=== PATIENT | female | born 1945 | race Caucasian/White ===

== ENCOUNTER 2020-08-20 08:22 | Outpatient (REF) | payer MEDICARE, SELFPAY ==
--- NOTE | 2020-08-20 | PFT_ITS ---
FLOWS: FEV1 97% of predicted at 2.10 L. FVC 95% of predicted at 2.73 L. FEV1 to FVC ratio of 0.77. No bronchodilator response. LUNG VOLUMES: Total lung capacity 87% of predicted at 4.42 L. Residual volume 83% of predicted at 1.89 L. Slow vital capacity 90% of predicted at 2.53 L. Expiratory reserve volume 25% of predicted at 0.16 L. Diffusion capacity is moderately decreased, diffusion capacity adjust to being mildly decreased after correction for alveolar ventilation. IMPRESSION: No obstructive or restrictive ventilatory defect. No bronchodilator response. Isolated defect in diffusion capacity suggests underlying pulmonary, vascular, or parenchymal disease. Clinical correlation is advised. Johnson Starks MD AP/MODL / [id number]
== END 2020-08-20 08:23 | disposition home or self-care (01) ==
LOC: HO.RESP 08:22
PROVIDERS: PCP Pediatrics; Visit Provider Hospitalist
DX: J84.9 Interstitial pulmonary disease, unspecified (principal)
CPT/HCPCS: 94060; 94727; 94729; 99212

== ENCOUNTER → 2020-10-04 12:37 | Outpatient (REF) | payer MEDICARE, SELFPAY | LOC: HO.SL 12:37 | PROVIDERS: PCP Pediatrics; Visit Provider Hospitalist | DX: G47.33 Obstructive sleep apnea (adult) (pediatric) (principal) | CPT/HCPCS: 95806 ==

== ENCOUNTER → 2020-11-22 09:49 | Outpatient (BNVA) | payer MEDICARE, SELFPAY | PROVIDERS: PCP Pediatrics; Visit Provider Hospitalist | DX: J67.9 Hypersensitivity pneumonitis due to unspecified organic dust (principal); G47.33 Obstructive sleep apnea (adult) (pediatric); I65.09 Occlusion and stenosis of unspecified vertebral artery; R91.8 Other nonspecific abnormal finding of lung field; J84.9 Interstitial pulmonary disease, unspecified; J45.40 Moderate persistent asthma, uncomplicated | CPT/HCPCS: 99212 ==

== ENCOUNTER → 2021-02-26 09:54 | Outpatient (BNVA) | payer MEDICARE, SELFPAY | PROVIDERS: PCP Pediatrics; Visit Provider Hospitalist | DX: G47.33 Obstructive sleep apnea (adult) (pediatric) (principal); R91.8 Other nonspecific abnormal finding of lung field; J84.9 Interstitial pulmonary disease, unspecified; J45.40 Moderate persistent asthma, uncomplicated; J67.9 Hypersensitivity pneumonitis due to unspecified organic dust; J40 Bronchitis, not specified as acute or chronic; J06.9 Acute upper respiratory infection, unspecified | CPT/HCPCS: 99212 ==

== ENCOUNTER → 2021-08-26 09:35 | Outpatient (BNVA) | payer MEDICARE, SELFPAY | PROVIDERS: PCP Pediatrics; Visit Provider Hospitalist | DX: G47.33 Obstructive sleep apnea (adult) (pediatric) (principal); R91.8 Other nonspecific abnormal finding of lung field; J84.9 Interstitial pulmonary disease, unspecified; J45.20 Mild intermittent asthma, uncomplicated; J67.9 Hypersensitivity pneumonitis due to unspecified organic dust | CPT/HCPCS: 99212 ==

== ENCOUNTER 2022-07-30 09:40 | Outpatient (REF) | payer MEDICARE, SELFPAY ==
--- NOTE | 2022-07-30 15:09 | PFT_ITS ---
Forced vital capacity 89%, FEV1 is 90%, FEV1/FVC ratio 76. [id number] 90% and MVV is 117%. Post bronchodilator therapy there is no significant change. Total lung capacity 84%. Residual volume 69%. Diffusion capacity 64%. CONCLUSION: Normal pulmonary function test, and there is no evidence of obstructive or restrictive pulmonary disorder. Diffusion capacity is slightly decreased, but when corrected with the volume, it is up to 74%, which is normal. Rhiannon Hartely MD MSB/MODL / [id number]
== END 2022-07-30 09:41 | disposition home or self-care (01) ==
LOC: HO.RESP 09:40
PROVIDERS: PCP Internal Medicine; Visit Provider Hospitalist
DX: J67.9 Hypersensitivity pneumonitis due to unspecified organic dust (principal)
CPT/HCPCS: 94060; 94727; 94729

== ENCOUNTER → 2022-09-01 09:34 | Outpatient (BNVA) | payer MEDICARE, SELFPAY | PROVIDERS: PCP Pediatrics; Visit Provider Hospitalist | DX: J67.9 Hypersensitivity pneumonitis due to unspecified organic dust (principal); J45.20 Mild intermittent asthma, uncomplicated; J84.9 Interstitial pulmonary disease, unspecified; R91.8 Other nonspecific abnormal finding of lung field; G47.33 Obstructive sleep apnea (adult) (pediatric) | CPT/HCPCS: 99212 ==

== ENCOUNTER 2025-03-16 09:34 | Outpatient (AMB) | payer MEDICARE, SELFPAY ==
[2025-03-16 09:39] VITALS: BP 124/60; PULSE 78; O2SAT 98; BMI 28.2
--- NOTE | 2025-03-16 09:39 | A.OFFVIS_ITS ---
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 This is biopsy proven. She had a hypersensitivity panel positive for mold and also for bird droppings. She now has been off the prednisone for about for 5 weeks. She has been doing well. She has noticed a cough. The cough is dry and intermittent. Denies any shortness of breath or wheezing at this time. She does not feel that she needs anything for the cough. She denies any chest pains or any other respiratory complaints. She knows to avoid mold and also avoid any place having be hot and humid with poor ventilation. She is aware that she needs to use a mask if working in the garden or any other areas were mold is present. She was sick prior to getting the CT scan with a respiratory illness. She was at the end of the illness when she get the CT scan. Now she is back to baseline. She is not wheezing at coughing barely. We did review the CT scan in the office demonstrating some increasing reticular changes primarily at the bases. She also has a small new pulmonary nodule measuring 2 mm. 06/2019 The patient is well from a respiratory status. Denies any worsening cough denies any chest pains or shortness of breath. She definitely feels like her respiratory status is at baseline. She also change her eating habits where she is avoiding simple carbs in this is really improving her overall energy and respiratory symptoms. She has also been treating her reflux disease better with the reflux diet and making sure she does all the necessary lifestyle changes to minimize micro aspirations. I believe this is all helping. Her exam is normal no wheezing or rhonchi appreciated. No crackles appreciated. We will hold off on doing any further imaging studies or starting any prednisone at this time. If however the patient develops any worsening respiratory symptoms or any other concerning symptoms she is to call as soon as possible. Will plan to repeat the CT scan 6 months or sooner if she develops any worsening symptoms. 12/14/2019. The patient is here for pulmonary follow-up visit. Overall she is doing well. She continues to lose weight healthy. She feels better she is more active. She denies any shortness of breath or cough. She has been having some reflux symptoms and she is working on her lifestyle changes. In the lan ntime she did have a CT scan of the chest done November 2019 demonstrating some persistent chronic airspace disease and interstitial lung disease. These findings were not there in 2018. This brings up the question of underlying chronic hypersensitivity pneumonitis. The patient is not taking any inhalers at this point. I will feel better if she was taking at least inhaled corticosteroid to minimize the inflammatory changes. Explained to her this inflammatory changes have been slowly and she may not realize it. Will monitor closely her PFTs and also her CT scan to make sure she does develop any progressive interstitial lung disease. The meantime she is trying to avoid mold at all times. 08/20/2020 the patient is here for pulmonary follow-up visit. Overall she is doing well. She denies any worsening dyspnea or cough. She continues to follow closely the reflux diet. She is also voiding mold to minimize her exposures. She did undergo a pulmonary function study today. No evidence of any obstruction nor restriction. She does have slight decrease in the diffusing capacity. At this point we continue with current medical regimen. Her last CT scan of the chest was back in November 2019 demonstrating interstitial lung disease as well as pulmonary nodules. At this point the patient needs a repeat CT scan to address the pulmonary nodules and to assess if there is any worsening of the interstitial lung disease. 11/22/2020 the patient is here for a pulmonary follow-up visit. Overall the patient has been doing well from a respiratory status. She denies any significant shortness of breath or coughing. She denies any fevers or chills. She is still trying to avoid any exposures to mold. She does carry a diagnosis of hyper sensitivity pneumonitis. In the meantime the patient does have daytime drowsiness. Her [place] score continues to be elevated 03/06. We did review home sleep study demonstrating an AHI 15 consistent moderate COPD. The patient is very symptomatic and also has significant snoring documented. The patient understands that best treatment with the CPAP. She is agreeable at this time. Will make arrangements for the local [employer] company to be able to set her up. In the meantime her CT scan of the chest has been pretty stable demonstrating minimal mosaic pattern and haziness. But no new areas and no new nodules. Appears to be stable which is reassuring. It is likely that this is going to be her new normal. At some point will repeat the CT scan specially if she develops any symptoms. Hold right now will hold off at least 12-18 months. The patient be set up with CPAP and she will return in 3 months to reassess her progress. The patient also is very concerned about an MRI finding that she was not aware of. Apparently she has what appears to be vertebral artery stenosis. In view of the underlying obstructive sleep apnea and other cardiovascular risk factors patient should be evaluated for this. 02/26/2021 the patient is here for pulmonary follow-up visit. Overall the patient has been complaining of worsening URI like symptoms for the last couple days. Positive sick contacts after a family gathering. The patient has been complaining of nasal congestion cough in addition to her sore throat. She did get a rapid COVID test that was negative. She still waiting for the final report however. The patient has been using her respiratory inhalers. Her cough tends to be productive at times. She has not been using any hezl-[id number]-[id number] medications. Denies any fevers or chills. At this point will treat the patient for bronchitis. If the patient worsens since developed wheezing she should also start prednisone. If her COVID test comes back positive she is to call and we can consider monoclonal antibody therapy. Also to note the patient did start PAP therapy but she could not tolerated and she returned it. the patient is not interested in re-attempt thing PAP therapy at this time. 08/26/2021 the patient is here for a pulmonary follow-up visit. She does complaint of increasing dyspnea on exertion. She states that she has a hard time completing a game of golf. Along with the shortness of breath she does have some discomfort in her lower extremities and hips. Therefore is likely multifactorial. The patient has not been using any inhalers. She denies wanting to use her rescue inhaler. her respiratory exam is relatively normal. Will have her undergo a chest x-ray. If the patient develops any worsening symptoms she is to call the office so I can send her rescue inhaler. Otherwise a follow-up in 1 year with pulmonary function studies. 09/01/2022 the patient is here for a pulmonary follow-up visit. The patient has been staying active outside playing golf and walking. Denies any respiratory limitations. She does have a rescue inhaler but she has not had to use it. No longer taking any maintenance inhalers. She is having some issues with chest pressure sensation. Sometimes she is having to stop which she is doing because of some chest discomfort. She is following up with Cardiology and will have a cardiac stress test soon. In the meantime we did talk about sleep apnea and how that can affect her cardiovascular health. We did review her sleep studies from 2020 demonstrating moderate obstructive sleep apnea. Most of the apneic episodes and hypopnea episodes occur during her lying supine. Therefore we talked about the importance of positional therapy. She is going to look into some options. If the patient has any evidence of any underlying cardiovascular disease which should revisit the sleep study and make sure that she is doing adequate position therapy to minimize her risk of further worsening cardiovascular health. The patient working outside which show a but she is wearing a respirator to try to minimize mold exposure specially with history of pneumonitis. We did review her pulmonary function studies that she just had demonstrating no evidence of any obstructive nor restrictive ventilatory defects. She does have a mild diffusion impairment but not enough to warrant any clinical symptoms. Therefore which she will continue with current therapy and will follow-up in a year's time unless she develops any new issues she will call the office for an earlier assessment. 03/16/2025 the patient is here for pulmonary follow-up visit. Overall the patient is doing well. Apparently she did have a evaluation for shoulder discomfort and she had x-rays. It was noted that she had a nodular density in the left hemithorax. Therefore the patient was calling. We did have her go for a chest x-ray at [facility]. Personally by me. No evidence of any nodular densities. The nodular density had to do with her bony structures in the form that they took the x-ray. The patient is doing well denies any shortness of breath. Sometimes she has not intermittent cough. Typically nonproductive. She does not use any respiratory inhalers at this time. The patient continues to exercise and playing golf regularly. No limitations from a pulmonary standpoint. She denies any significant exposure to mold. That is the biggest emesis for her with a history of hypersensitivity pneumonitis. Does no longer the case. She is sleeping well. She is working on weight loss. Overall well we did talk about her vaccine. She will get her RSV vaccine at some point. The patient otherwise will follow-up in a year with a chest x-ray. If any issues arise she can always call for further recommendations. [facility] Medical History (Updated 08/26/21 @ 21:29 by Rell Warren MD) Vertebral artery stenosis Palpitations Pulmonary nodules ILD (interstitial lung disease) Asthma Hypersensitivity pneumonitis Family History (Updated 08/21/20 @ 21:40 by Rell Warren MD) Other Asthma Social History Patient Tobacco Use Status: Former Tobacco user Tobacco use type: Cigarette Years Smoked: 40 years Review of Systems Const Denies chills, Denies fatigue, Denies fever(s) and Denies night sweats ENT Denies change in voice, Denies lip swelling, Denies mouth pain, Reports nasal congestion, Reports nasal discharge and Denies tongue swelling Card Denies chest pain and Denies dyspnea on exertion Resp Denies chest congestion, Reports cough, Denies dyspnea on exertion and Denies wheezing GI Denies abdominal pain Musc Reports arthralgias and Reports limited range of motion Neuro Denies Neuro-related abnormal movements Psych Denies no additional complaints Endo Denies fatigue Andrea/Lymph Denies easy bleeding and Denies lymphadenopathy Aller/Immun Denies lip swelling, Denies tongue swelling and Denies wheezing Physical Exam Vital Signs: Last Vital Signs Pulse 78 03/16/25 09:39 BP 124/60 03/16/25 09:39 Pulse Ox 98 03/16/25 09:39 Oxygen Delivery Method Room Air 03/16/25 09:39 BMI result Body Mass Index 28.2 Const General: alert Neck Neck: Yes normal visual inspection, Yes full ROM and Yes no lymphadenopathy Chest Chest palpation & inspection: normal inspection of the chest Resp Effort & Inspection: normal respiratory effort Auscultation: no rales, no rhonchi, no wheezes and diminished lung sounds Cardio Rate: regular rate Rhythm: regular rhythm Heart sounds: S1 normal heart sound present and S2 normal heart sound present GI Palpation (GI): Soft to palpation and nontender Auscultation: normal bowel sounds Skin General skin exam: rashes and/or lesions noted Assessment & Plan Assessment & Plan (1) Pulmonary nodules: Comment: Stable for more than 2 years Code(s): R91.8 - Other nonspecific abnormal finding of lung field Category: Medical (2) ILD (interstitial lung disease): Comment: secondary to HSP due to mold, better Code(s): J84.9 - Interstitial pulmonary disease, unspecified Category: Medical (3) Asthma: Code(s): J45.909 - Unspecified asthma, uncomplicated Category: Medical Qualifiers: Asthma complication type: uncomplicated Asthma persistence: intermittent Asthma severity: mild Qualified Code(s): J45.20 - Mild intermittent asthma, uncomplicated (4) Hypersensitivity pneumonitis: Code(s): J67.9 - Hypersensitivity pneumonitis due to unspecified organic dust Category: Medical (5) IGNACIO (obstructive sleep apnea): Comment: Not on CPAP Code(s): G47.33 - Obstructive sleep apnea (adult) (pediatric) Category: Medical Plan: not treated Plan consider short-acting beta agonist as needed mold avoidance positional sleep therapy, needs to avoid sleeping supine CXR in 1 yr F/U in 1 yr Coding Level of Care Code Est Pt Level 4 (15443) Diagnoses Pulmonary nodules R91.8 ILD (interstitial lung disease) J84.9 Mild intermittent asthma without complication J45.20 Asthma complication type: uncomplicated Asthma persistence: intermittent Asthma severity: mild Hypersensitivity pneumonitis J67.9 IGNACIO (obstructive sleep apnea) G47.33 Time Spent (min) 16
--- OUTSIDE RECORDS SUMMARY | 2025-03-16 10:47 | XMS_ITS | Clinical Summary ---
Author Organization [facility] Address [address] [place] [id number] Phone Care Team Providers Care Casting Associate Name Role Phone Kanchan Jay MD Primary Care Provider [phone] Allergies Active Allergy Reactions Criticality Noted Date Comments Sulfamethoxazole-Trimethoprim 2016 Medications pediatric [id number] n (MULTI-VITAMINS WITH IRON) Chew Take by mouth. Active ascorbic acid, vitamin C, (VITAMIN C) 500 MG tablet Take 500 mg by mouth. Active metoprolol tartrate (LOPRESSOR) 25 MG tablet Take 25 mg by mouth. Active predniSONE (DELTASONE) 5 MG tablet Take 7.5 mg by mouth. 09/02/2017 Active cyanocobalamin, vitamin B-12, 100 MCG tablet Take 100 mcg by mouth daily. Active calcium carbonate 1,250 mg (500 mg elemental) capsule Take 1,250 mg by mouth 2 (two) times a day with meals. Active Active Problems Problem Noted Date Diagnosed Date Screening for breast cancer 07/05/2018 Assessment & Plan (07/05/2018 9:51 AM EDT): Screening guidelines reviewed. Over 70- no consensus. Pt in good health. Suggested screening this year and then prn as good health continues. Osteopenia after menopause 07/05/2018 Assessment & Plan (07/05/2018 9:50 AM EDT): Pt states she had vertebral fx on CT in 2018. Hasn't had BD in over 2-3 yrs? On chronic prednisone. Immunizations Immunization Administration Dates Next Due Influenza High-Dose Trivalent Preservative Free IM 12/25/2017 Family History Medical History Relation Comments Prostate cancer Brother Myelodysplastic syndrome Father ag e 69 Colon cancer Mother of the age 69 Liver cancer Mother Hypothyroidism Sister 1 Osteoporosis Sister 1 Hypothyroidism Sister 2 Hypothyroidism Sister 3 Relation Status Comments Brother Alive Father Mother Sister 1 Alive Sister 2 Alive Sister 3 Alive Social History Tobacco Use Types Packs/Day Years Used Date Smoking Tobacco: Former Smokeless Tobacco: Never Alcohol Use Standard Drinks/Week Comments Never 0 (1 standard drink = 0.6 oz pur e alcohol) Education Answer Date Recorded Are you interested in more education? Not on lilo e 08/08/2022 Are you concerned about learning? Not on file 08/08/2022 No 08/08/2022 No 08/08/2022 Digital Access Answer Date Recorded No 09/06/2022 No 09/06/2022 No 09/06/2022 Reliable internet access at home? Not on file 09/06/2022 Device with a working camera? Not on file Comments Unknown Sex and Gender Information Value Date Recorded Sex Assigned at Not on file Legal Sex Female 9:07 AM EST Gender Identity Not on file Sexual Orientation Not on file Occupation Industry Job Start Date Job End Date retired Not on file Not on file Not on file Last Filed Vital Signs Vital Sign Reading Time Taken Comments Blood Pressure 110/60 07/05/2018 9:19 AM EDT Pulse - - Temperature - - Respiratory Rate - - Oxygen Saturation - - Inhaled Oxygen Concentration - - Weight 71.4 kg (157 lb 6.4 oz) 07/05/2018 9:19 A M EDT Height 162.6 cm (5' 4 ) 07/05/2018 9:19 AM EDT Body Mass Index 27.02 07/05/2018 9:19 AM EDT Plan of Treatment Health Maintenance Due Date Last Done Comments Adult Td,Tdap Booster 1946 LIPID PANEL 1946 DEPRESSION SCREENING 1958 SMOKING Hx and SMOKELESS TOBACCO SCREENING 11/09/1959 HEPATITIS C SCREENING 1964 PNEUMOCOCCAL VACCINES (50+ years) (1 of 1 - PCV) 1996 ZOSTER VACCINES (1 of 2) 1996 OSTEOPOROSIS SCREENING INITIAL (ONE-TIME) 11/09/2011 RSV VACCINE (1 - 1-dose 75+ series) 2021 INFLUENZA VACCINE (#1) 2024 , 12/25/2017, 01/02/2017, Additional history exists COVID-19 VACCINE (2 - 2024- season) 2024 07/11/2020 HEPATITIS A VACCINES Aged Out No long er eligible based on patient's age to complete this topic HIB VACCINES Aged Out No longer eligi ble based on patient's age to complete this topic MENINGOCOCCAL VACCINES (ACWY) Aged Out No longer eligible based on patient's age to complete this topic MENINGOCOCCAL VACCINES (B) Aged Out N o longer eligible based on patient's age to complete this topic Medical Devices Not on file Insurance [employer] Member Subscriber Plan / Payer (Ef fective 2017-Present) Name:Noemi Steele Relation to Subscriber:Self Name:Noemi Steele Payer ID:Not on file Type:Medicare Address: [place] [id number] [employer] RE[employer] REPLACEMENT [employer] HMO [place] [address] [place] [address] MEDICARE HMO REPLACEMENT Care Teams Casting Associate Relationship Specialty Start Date End Date Kanchan Jay MD [address] [place] [address] PCP - General Internal Medicine 03/25/18 Additional Source Comments The information contained in this document represents components of the legal health record. It is not the complete legal health record.[facility]
== END 2025-03-16 10:04 | disposition home or self-care (01) ==
PROVIDERS: PCP Pediatrics; Visit Provider Hospitalist
DX: R91.8 Other nonspecific abnormal finding of lung field (principal); J84.9 Interstitial pulmonary disease, unspecified; J45.20 Mild intermittent asthma, uncomplicated; J67.9 Hypersensitivity pneumonitis due to unspecified organic dust; G47.33 Obstructive sleep apnea (adult) (pediatric)
CPT/HCPCS: 99214

== ENCOUNTER → 2025-03-16 09:34 | Outpatient (BNVA) | payer MEDICARE, SELFPAY | PROVIDERS: PCP Pediatrics; Visit Provider Hospitalist | DX: J45.20 Mild intermittent asthma, uncomplicated (principal); R91.8 Other nonspecific abnormal finding of lung field; J84.9 Interstitial pulmonary disease, unspecified; J67.9 Hypersensitivity pneumonitis due to unspecified organic dust; G47.33 Obstructive sleep apnea (adult) (pediatric); Z87.891 Personal history of nicotine dependence | CPT/HCPCS: 99212 ==